=== PATIENT | male | born 1990 | race Caucasian/White ===

== ENCOUNTER 2020-03-13 09:15 | Observation (INO) ==
[2020-03-13] MEDS ORDERED: 0.9 % Sodium Chloride 1,000 ML IVC ONE (09:31)
[2020-03-13] MEDS ORDERED: Hyoscyamine 0.5 MG/ML MLS IVP ONE (09:33)
[2020-03-13] MEDS ORDERED: *HR* FentaNYL (PF) 100 MCG/2 ML VIAL IVP ONE (09:33)
[2020-03-13] MEDS ORDERED: Isovue-370 500 ML BOTTLE IVP ONE (09:41)
[2020-03-13 09:46] LABS: Bilirubin,Urine Negative (Negative); Blood,Urine Negative (Negative); Clarity,Urine Clear (Clear); Color,Urine Light-Yellow (Yellow); Glucose,Urine (UA) Normal (Normal); Ketones,Urine Negative (Negative); Leukocyte Esterase,Urine Negative (Negative); Nitrite,Urine Negative (Negative); PH,Urine 6.5 pH Units (5.0-8.0); Protein,Urine Trace mg/dL (Neg-Trace); Specific Gravity,Urine 1.026 (1.010-1.025); Urobilinogen,Urine Normal (Normal)
[2020-03-13 09:50] LABS: Basophils % 0.3 %; Eosinophils # 0.2 K/mcL (0.0-0.6); Eosinophils % 3.2 %; Hemoglobin 15.6 g/dL (12.9-16.9); Immature Granulocytes % 0.3 % (0-4); Lymphocytes # 1.7 K/mcL (0.6-4.6); Lymphocytes % 27.8 %; Mean Corpuscular HGB Conc 34.7 g/dL (31.6-35.5); Mean Corpuscular Hemoglobin 29.9 pg (28.0-33.3); Mean Corpuscular Volume 86.2 fL (83.0-100.0); Mean Platelet Volume 8.7 fL (9.4-12.4); Monocytes # 0.4 K/mcL (0.0-1.3); Monocytes % 5.8 %; Neutrophils # 3.9 K/mcL (1.6-8.9); Platelet Count 195 K/mcL (140-400); Red Blood Count 5.22 M/mcL (4.19-5.50); Red Cell Distribution Width 11.9 % (11.5-14.5); Segmented Neutrophils % 62.6 %; White Blood Count 6.2 K/mcL (4.3-11.1)
[2020-03-13 10:10] LABS: Alanine Aminotransferase 25 Units/L (7-52); Albumin 4.8 g/dL (3.5-5.7); Albumin/Globulin Ratio 1.7 (1.1-2.2); Alkaline Phosphatase 38 Units/L (34-104); Aspartate Amino Transferase 11 Units/L (13-39); BUN/Creatinine Ratio 12 (6-26); Bilirubin,Direct 0.2 mg/dL (0.0-0.2); Bilirubin,Indirect 0.6 mg/dL (0.0-1.0); Bilirubin,Total 0.8 mg/dL (0.3-1.0); Blood Urea Nitrogen 14 mg/dL (6-20); Calcium 9.5 mg/dL (8.6-10.3); Carbon Dioxide 28 mEq/L (23-29); Chloride 104 mEq/L (98-107); Globulin 2.9 g/dL (2.4-3.5); Glucose 73 mg/dL (70-105); Lipase 34 Units/L (11-82); Osmolality,Calculated 287 (280-300); Potassium 3.8 mEq/L (3.5-5.1); Sodium 139 mEq/L (136-145); Total Protein 7.7 g/dL (6.4-8.9); eGFR For African Americans > 60 (> 60); eGFR For Non-African Americans > 60 (> 60)
[2020-03-13] MEDS ORDERED: Morphine Sulfate 2 MG/ML SYRINGE IVP ONE (12:21)
[2020-03-13] MEDS ORDERED: Ondansetron 4 MG/2 ML VIAL IVP ONE (12:23)
[2020-03-13] MEDS ORDERED: Naloxone 0.4 MG/ML INJ IVP PRN (13:30)
[2020-03-13] MEDS: 0.9 % Sodium Chloride 1,000 ML IVC SCH (14:52)
[2020-03-13] MEDS: Piperacillin/Tazobactam 3.375 GM in 0.9 % Sodium Chloride Mini Bag 100 ML IVPB SCH ×2 (14:53→15:22)
[2020-03-13] MEDS: Ondansetron 4 MG/2 ML VIAL IVP PRN (17:08)
[2020-03-14] MEDS: 0.9 % Sodium Chloride 1,000 ML IVC SCH ×4 (00:18→23:48)
[2020-03-14] MEDS: Piperacillin/Tazobactam 3.375 GM in 0.9 % Sodium Chloride Mini Bag 100 ML IVPB SCH ×4 (00:18→20:07)
[2020-03-14] MEDS: Ondansetron 4 MG/2 ML VIAL IVP PRN (00:23)
[2020-03-14] MEDS ORDERED: Lidocaine -MPF 4% 5 ML AMPUL ONE (07:56)
[2020-03-14] MEDS ORDERED: *HR* Propofol 200 MG/20 ML VIAL IVP ONE (08:00)
[2020-03-14] MEDS ORDERED: *HR* Midazolam HCl 2 MG/2 ML VIAL ONE (08:00)
[2020-03-14] MEDS ORDERED: *HR* HYDROMORPHONE 2 MG/ML VIAL ONE (08:00)
[2020-03-14] MEDS ORDERED: *HR* FentaNYL (PF) 100 MCG/2 ML VIAL ONE (08:00)
[2020-03-14] MEDS ORDERED: Lidocaine -MPF 2% 2 ML VIAL ONE (08:01)
[2020-03-14] MEDS ORDERED: *HR* Rocuronium Bromide 50 MG/5 ML VIAL ONE ×2 (08:01→09:18)
[2020-03-14] MEDS ORDERED: *HR* Succinylcholine 200 MG/10 ML VIAL IVP ONE (08:01)
[2020-03-14] MEDS ORDERED: Dexamethasone 4 MG/ML VIAL ONE (08:01)
[2020-03-14] MEDS ORDERED: Ondansetron 4 MG/2 ML VIAL ONE (08:01)
[2020-03-14] MEDS ORDERED: Acetaminophen IV 1,000 MG/100 ML INFUS..BTL ONE (08:16)
[2020-03-14] MEDS ORDERED: Ketorolac 30 MG/ML VIAL ONE (09:48)
[2020-03-14] MEDS ORDERED: Naloxone 0.4 MG/ML INJ IVP PRN (11:24)
[2020-03-14] MEDS ORDERED: Ondansetron 4 MG/2 ML VIAL IVP PRN (11:24)
[2020-03-14] MEDS: Sucralfate 1 GM TABLET PO SCH (20:08)
[2020-03-15] MEDS: Sucralfate 1 GM TABLET PO SCH ×2 (00:37→04:30)
[2020-03-15 03:35] LABS: Basophils % 0.1 %; Eosinophils % 0.1 %; Hematocrit 35.8 % (37.5-50.1); Immature Granulocytes % 0.3 % (0-4); Lymphocytes # 1.6 K/mcL (0.6-4.6); Lymphocytes % 15.7 %; Mean Corpuscular HGB Conc 34.6 g/dL (31.6-35.5); Mean Corpuscular Hemoglobin 30.4 pg (28.0-33.3); Mean Corpuscular Volume 87.7 fL (83.0-100.0); Monocytes # 0.8 K/mcL (0.0-1.3); Monocytes % 8.4 %; Neutrophils # 7.5 K/mcL (1.6-8.9); Platelet Count 161 K/mcL (140-400); Red Blood Count 4.08 M/mcL (4.19-5.50); Red Cell Distribution Width 11.8 % (11.5-14.5); Segmented Neutrophils % 75.4 %
[2020-03-15 03:38] LABS: Hemoglobin 12.4 g/dL (12.9-16.9)
[2020-03-15 03:48] LABS: BUN/Creatinine Ratio 10 (6-26); Blood Urea Nitrogen 11 mg/dL (6-20); Calcium 8.1 mg/dL (8.6-10.3); Carbon Dioxide 25 mEq/L (23-29); Chloride 105 mEq/L (98-107); Glucose 99 mg/dL (70-105); Osmolality,Calculated 283 (280-300); Potassium 3.6 mEq/L (3.5-5.1); Sodium 137 mEq/L (136-145); eGFR For African Americans > 60 (> 60); eGFR For Non-African Americans > 60 (> 60)
[2020-03-15] MEDS ORDERED: Piperacillin/Tazobactam 3.375 GM VIAL ONE (04:19)
[2020-03-15] MEDS: Piperacillin/Tazobactam 3.375 GM in 0.9 % Sodium Chloride Mini Bag 100 ML IVPB SCH (04:25)
[2020-03-15] MEDS: 0.9 % Sodium Chloride 1,000 ML IVC SCH (09:19)
[2020-03-15 11:58] VITALS: BP 112/74
== END 2020-03-15 13:20 | disposition home or self-care (01) ==
LOC: EMEROOARM 09:15 → 3ANU 09:15 → SUATTDRO 13:32 → 3ANU 14:10
PROVIDERS: ADMIT Internal Medicine; ATTEND Internal Medicine